=== PATIENT | female | born 1960 | race Caucasian/White ===

== ENCOUNTER 2019-02-25 08:35 | Day surgery (SDC) | payer BC ==
[~2019-02-25 08:35] MED LIST: Bupivacaine 0.25% 10 ML SDV ONE; Glycopyrrolate 0.2 MG/ML SDV ONE; Lidocaine 2% 5 ML SDV ONE; Methylene Blue 50 MG/10 ML Ampule ONE; Midazolam 1 MG/ML 2 ML SDV ONE; Neostigmine Methylsulfate 1 MG/ML 5 ML Syringe ONE; Ondansetron 4 MG/2 ML SDV ONE; Propofol 200 MG/20 ML SDV ONE; Sodium Chloride 0.9% 10 ML SDV IV PRN; Sodium Chloride 0.9% 10 ML Syringe FLUSH PRN; Sodium Chloride 0.9% 2.5 ML Syringe FLUSH PRN; ceFAZolin 1 GM in Premix Bag 1 BAG IV ONE; fentaNYL 250 MCG/5 ML SDV ONE
--- NOTE | 2019-02-25 09:09 | PCM.PREANE ---
Preanesthetic Assessment - Anesthesia/Transfusion/Family Hx Anesthesia History: Prior Anesthesia Without Reaction Family History of Anesthesia Reaction: No Transfusion History: No Prior Transfusion(s) Intubation History: Unknown - Review of Systems General: No Symptoms Pulmonary: No Symptoms Cardiovascular: No Symptoms Gastrointestinal: No Symptoms Neurological: No Symptoms Other: Reports: None - Physical Assessment Height: 5 ft 4.5 in Weight: 66.678 kg ASA Class: 2 Mental Status: Alert & Oriented x3 Airway Class: Mallampati = 2 Dentition: Reports: Normal Dentition, Bridge (left lower) Thyro-Mental Finger Breadths: 3 Mouth Opening Finger Breadths: 3 ROM/Head Extension: Full Lungs: Clear to Auscultation, Normal Respiratory Effort Cardiovascular: Regular Rate, Regular Rhythm - Allergies Allergies/Adverse Reactions: Allergies Allergy/AdvReac Type Severity Reaction Status Date / Time No Known Allergies Allergy Verified 02/19/19 10:21 - Acknowledgements Anesthesia Type Planned: General Anesthesia Pt an Appropriate Candidate for the Planned Anesthesia: Yes Alternatives and Risks of Anesthesia Discussed w Pt/Guardian: Yes Pt/Guardian Understands and Agrees with Anesthesia Plan: Yes PreAnesthesia Questionnaire HEENT History: Reports: Other (See Below) Other HEENT History: wears glasses Cardiovascular History: Reports: High Cholesterol Respiratory History: Reports: Asthma, Other (See Below) Other Respiratory History: "possible valley fever" to have CT scan done in [facility] before this procedure Gastrointestinal History: Reports: None Genitourinary History: Reports: None 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: , Other (See Below) (endometriosis, endometrial hyperplasia) Musculoskeletal History: Reports: Arthritis Neurological History: Reports: Migraines, Vertigo Psychiatric History: Reports: None Endocrine/Metabolic History: Reports: None Hematologic History: Reports: None Immunologic History: Reports: None Oncologic (Cancer) History: Reports: None Dermatologic History: Reports: None - Past Surgical History Head Surgeries/Procedures: Reports: None HEENT Surgical History: Reports: LASIK Cardiovascular Surgical History: Reports: None Respiratory Surgical History: Reports: None GI Surgical History: Reports: None Female Surgical History: Reports: Tubal Ligation, Other (See Below) Other Female Surgeries/Procedures: laparoscopy, hysteroscopy with EMB 07/09 Endocrine Surgical History: Reports: None Neurological Surgical History: Reports: None Musculoskeletal Surgical History: Reports: Shoulder Surgery Other Musculoskeletal Surgeries/Procedures:: left shoulder replacement 01/08 Oncologic Surgical History: Reports: None Dermatological Surgical History: Reports: None - SUBSTANCE USE Smoking Status *Q: Never Smoker Recreational Drug Use History: No - HOME MEDS Home Medications: Home Meds Benzonatate [Tessalon Perle] 100 mg PO ASDIRECTED PRN 02/19/19 [History] Fexofenadine/Pseudoephedrine [Sandra-D 12 Hour Tablet] 1 tab PO ASDIRECTED PRN 02/19/19 [History] Pulmicort Flexhaler 1 puff INH BID 02/19/19 [History] - CURRENT (IN HOUSE) MEDS Current Meds: Current Medications Sodium Chloride (Saline Flush) 10 ml FLUSH ASDIRECTED PRN PRN Reason: Keep Vein Open Sodium Chloride (Saline Flush) 2.5 ml FLUSH ASDIRECTED PRN PRN Reason: Keep Vein Open Sodium Chloride (Normal Saline) 10 ml IV ASDIRECTED PRN PRN Reason: IV Use Discontinued Medications Bupivacaine HCl (Sensorcaine-Mpf 0.25%) Confirm Administered Dose 20 ml .ROUTE .STK-MED ONE Stop: 02/25/19 07:25 Fentanyl (Sublimaze) Confirm Administered Dose 250 mcg .ROUTE .STK-MED ONE Stop: 02/25/19 07:59 Glycopyrrolate (Robinul) Confirm Administered Dose 0.4 mg .ROUTE .STK-MED ONE Stop: 02/25/19 07:58 Cefazolin Sodium/Dextrose 1 gm (/ Premix) 50 mls @ 100 mls/hr IV ONETIME ONE Stop: 02/25/19 05:29 Lidocaine (Xylocaine-Mpf 2%) Confirm Administered Dose 5 ml .ROUTE .STK-MED ONE Stop: 02/25/19 07:58 Methylene Blue (Provayblue) Confirm Administered Dose 50 mg .ROUTE .STK-MED ONE Stop: 02/25/19 07:24 Midazolam HCl (Versed 1 Mg/Ml) Confirm Administered Dose 2 mg .ROUTE .STK-MED ONE Stop: 02/25/19 07:59 Neostigmine Methylsulfate (Neostigmine) Confirm Administered Dose 5 mg .ROUTE .STK-MED ONE Stop: 02/25/19 07:58 Ondansetron HCl (Zofran) Confirm Administered Dose 4 mg .ROUTE .STK-MED ONE Stop: 02/25/19 07:58 Propofol (Diprivan 20 Ml) Confirm Administered Dose 200 mg .ROUTE .[facility] ONE Stop: 02/25/19 07:59
[2019-02-25] MEDS ORDERED: Scopolamine 1.5 MG Transdermal Patch TRDERM PRN (09:10)
[2019-02-25] MEDS ORDERED: Scopolamine 1.5 MG Transdermal Patch ONE (09:11)
[2019-02-25] MEDS ORDERED: Lactated Ringers 1,000 ML IV SCH (09:15)
[2019-02-25] MEDS ORDERED: Fluorescein 5 ML Vial ONE (09:16)
[2019-02-25 09:36] LABS: CARBON DIOXIDE,CO2 28.9 mmol/L (21.0-32.0); POTASSIUM,K 3.7 mmol/L (3.5-5.1)
[2019-02-25] MEDS ORDERED: ceFAZolin 1 GM Vial ONE (09:48)
[2019-02-25] MEDS ORDERED: Sodium Chloride 0.9% 20 ML ONE ×2 (09:48→10:24)
[2019-02-25] MEDS ORDERED: Dexamethasone 4 MG/ML 5 ML MDV ONE (09:58)
[2019-02-25] MEDS ORDERED: Phenylephrine/Normal Saline 100 MCG/ML 10 ML Syringe ONE (10:00)
[2019-02-25] MEDS ORDERED: ePHEDrine 50 MG/ML SDV ONE (10:24)
[2019-02-25] MEDS ORDERED: EPINEPHrine 1:10,000 1 MG/10 ML Syringe IVPUSH PRN (10:47)
[2019-02-25] MEDS ORDERED: Albuterol 0.083% 2.5 MG/3 ML Neb Soln NEB PRN (10:47)
[2019-02-25] MEDS ORDERED: fentaNYL 100 MCG/2 ML SDV IVPUSH PRN (10:47)
[2019-02-25] MEDS ORDERED: Atropine 0.1 MG/ML 10 ML Syringe IVPUSH PRN ×2 (10:47)
[2019-02-25] MEDS ORDERED: 50% Dextrose in Water 50 ML Syringe IVPUSH PRN (10:47)
[2019-02-25] MEDS ORDERED: Naloxone 0.4 MG/ML Syringe IVPUSH PRN (10:47)
[2019-02-25] MEDS ORDERED: Furosemide 40 MG/4 ML VIAL ONE (10:58)
[2019-02-25] MEDS ORDERED: Morphine 4 MG/ML Syringe IVPUSH PRN (11:42)
[2019-02-25] MEDS ORDERED: Ketorolac 30 MG/ML SDV IVPUSH PRN (11:42)
[2019-02-25] MEDS ORDERED: Ondansetron 4 MG/2 ML SDV IVPUSH PRN (11:42)
[2019-02-25] MEDS ORDERED: Promethazine 25 MG/ML SDV IM PRN (11:42)
[2019-02-25] MEDS ORDERED: Ketorolac 30 MG/ML SDV IVPUSH ONE (11:42)
[2019-02-25] MEDS ORDERED: Belladonna Alkaloids/Opium 16.2-30 MG Supp RECTAL PRN (11:42)
[2019-02-25] MEDS ORDERED: Acetaminophen/oxyCODONE 325-5 MG Tab PO PRN (11:42)
--- NOTE | 2019-02-25 11:57 | PCM.OPNOTE ---
- General Post-Op/Procedure Note Date of Surgery/Procedure: 02/25/19 Operative Procedure(s): LAVH/BSO/Cystoscopy Findings: 6-8 week size uterus, small ovaries, right paratubal cysts Pre Op Diagnosis: Endometrial hyperplasia. postmenopausal bleeding Post-Op Diagnosis: Same Anesthesia Technique: General ET Tube Primary Surgeon: Wendy Christian Fluid Replacement, Intraop: 2,100 EBL in mLs: 200 Complications: none known Condition: Stable Free Text/Narrative:: Dictation [id number]
--- NOTE | 2019-02-25 12:30 | PCM.POSTAN ---
POST ANESTHESIA ASSESSMENT - MENTAL STATUS Mental Status: Alert, Oriented - VITAL SIGNS Vital Signs: Last Vital Signs Temp 36.1 C 02/25/19 11:37 Pulse 73 02/25/19 12:22 Resp 16 02/25/19 12:22 BP 135/83 02/25/19 12:22 Pulse Ox 98 02/25/19 12:22 - RESPIRATORY Respiratory Status: Respiratory Rate WNL, Airway Patent, O2 Saturation Stable - CARDIOVASCULAR CV Status: Pulse Rate WNL, Blood Pressure Stable - GASTROINTESTINAL GI Status: No Symptoms - PAIN Pain Score: 4 - POST OP HYDRATION Hydration Status: Adequate & Stable - OBSERVATIONS Free Text/Narrative:: no anesthesia problems
--- NOTE | 2019-02-25 12:55 | OR ---
SURGEON: Wendy Christian M.D. DATE OF PROCEDURE: 02/25/2019 PREOPERATIVE DIAGNOSES: 1. Endometrial hyperplasia. 2. Postmenopausal bleeding. POSTOPERATIVE DIAGNOSES: 1. Endometrial hyperplasia. 2. Postmenopausal bleeding. PROCEDURES: Laparoscopic-assisted vaginal hysterectomy, bilateral salpingo-oophorectomy, cystoscopy. PRIMARY SURGEON: Wendy Christian MD. LPN MEDICAL ASSISTANT: 1. Abbie Higuera MD. 2. Donna Nielsen MS4. ANESTHESIA: General endotracheal anesthesia. FLUIDS: 2100 mL of crystalloid. ESTIMATED BLOOD LOSS: 200 mL. COMPLICATIONS: None known. FINDINGS: A 6- to 8-week sized uterus. Normal-appearing bilateral ovaries. Right paratubal cyst. Bilateral patent ureters. DISPOSITION: The patient to PACU in stable condition. PROCEDURE DETAILS: Elham is a 58-year-old postmenopausal female who has ongoing difficulties with bleeding and biopsy has confirmed endometrial hyperplasia. Despite treatment with progestin therapy, the patient is still having bleeding, therefore, would like to proceed with definitive intervention. Risks of procedure have been discussed. Proper consent obtained. The patient would like her tubes and ovaries removed at time of procedure. The patient taken to the operating room where she underwent general endotracheal anesthesia, placed in modified dorsal lithotomy position, was prepped and draped in the usual sterile fashion. SCDs to lower extremities. Busby to gravity. Received Ancef prophylactically. Time-out was performed. Vaginally, a speculum was introduced in the vagina. Anterior lip of the cervix was grasped with the Allis clamp. A uterine HUMI manipulator was gently introduced, balloon insufflated. All instruments other than the uterine manipulator were now removed from the vagina. Gloves changed. Attention turned abdominally. Infraumbilically, 0.25% bupivacaine was introduced. Please see nurse's notes for total amount of local dispensed during the procedure. A 5 mm infraumbilical incision was created, anterior abdominal wall was tented upward. A Veress needle was gently introduced. Saline hanging drop test was performed. Pneumoperitoneum was achieved. The Veress needle was removed. A 5 mm trocar was introduced along with the laparoscope. Peritoneal contents were identified. Right lower quadrant and left lower quadrant trocars now were introduced under direct visualization after prepping these regions with 0.25% bupivacaine and creating 5 mm skin incisions. The uterus was mobile. Tubes and ovaries were easily visualized. The ureters were seen peristalsing away from the region of the operative field. The left fallopian tube-ovary complex was now secured with a grasper, and using LigaSure, infundibulopelvic ligament was secured followed by the broad ligament down to level through the round ligament, to the upper portion of the cardinal ligament, base of the cardinal ligament, to the level of the uterosacral ligament. In the similar fashion, performed on the patient's right side. Uterovesical reflection was visualized. Bladder flap was created with LigaSure. Bladder was mobilized away from lower uterine segment followed by hydrodissection. At this juncture, I was able to remove laparoscopic instruments, release pneumoperitoneum, and proceed vaginally. The patient was placed in modified dorsal lithotomy position. The uterine manipulator was now gently removed. Weighted speculum and anterior Alexsander were now placed. Cervix grasped with Angélica clamp. Cervix was circumscribed with Bovie cautery anterior and posteriorly. The overlying mucosa was dissected away from underlying peritoneum. Posterior peritoneum was tented downward and entered sharply. The longer weighted speculum replaced the shorter. Anteriorly, the peritoneum was entered. [place] was placed to retract the bladder away from operative field. Froylan clamp was utilized on either side to secure uterosacral ligament. Transected and suture ligated with 2-0 Vicryl. Remainder of suture will be 2-0 Vicryl unless otherwise specified. Remaining pedicle on either side of the base of the cardinal ligament was able to be secured, transected, and suture ligated. The uterus, tubes, ovaries now removed, to be sent to pathology for analysis. There was some bleeding along this last pedicle along the left side, therefore, it was further secured with Froylan clamp and suture ligated. Hemostasis thereafter evident. The posterior peritoneum was now plicated to the edge of the vaginal cuff and the uterosacral ligament on either side was plicated to the vaginal apex. The pedicles were now inspected and found to be hemostatic. The cuff was closed using 0 Vicryl in continuous running locked fashion. Area of oozing in the midline cuff was now replicated with a [id number] suture. Hemostasis thereafter evident. The balloon was deflated, the Busby catheter removed. IV fluorescein and Lasix were delivered via IV and cystoscope was introduced in the bladder. The dome of the bladder was able to be visualized and found to be intact. Trigone inspected. The left ureteral orifice followed by the right ureteral orifice was now able to be visualized. Fluorescein-dyed urine was seen streaming from them, helping to ensure ureteral patency. The bladder was now drained. Busby catheter was replaced. The vaginal cuff once again inspected, found to be hemostatic. Attention was returned abdominally after changing gloves. Pneumoperitoneum was once again achieved. The pelvis was closely inspected along the pedicles and found to be hemostatic overall. The region was well irrigated, suction dried. Relief pressure was decreased to 5 mm of pressure. Once again, hemostasis was found to be evident. Therefore, the pneumoperitoneum was released. Laparoscopic instruments removed. The trocars removed under direct visualization followed by laparoscopic and infraumbilical trocar. The skin edges were reapproximated using 3-0 Monocryl in subcuticular fashion. Sponge, instrument, and needle count was correct x2. The patient has tolerated the procedure well overall. She will go to the PACU in stable condition, specimen to pathology. RACHEL / STARLA /[id number]
[2019-02-25] MEDS: Morphine 10 MG/ML Syringe IVPUSH PRN ×2 (14:17→19:39)
--- NOTE | 2019-02-25 17:40 | PCM.SN ---
- Free Text/Narrative Note: Pain is under better control now--just has back cramping. Denies nausea. Explained intraoperative findings and procedure. Continue postoperative cares, ambulate this pm and remove rodriguez later this pm.
[2019-02-25] MEDS: Acetaminophen/oxyCODONE 325-5 MG Tab PO PRN (22:52)
[2019-02-25] MEDS: Docusate Sodium 100 MG Cap PO SCH (22:52)
[2019-02-26] MEDS: Acetaminophen/oxyCODONE 325-5 MG Tab PO PRN ×2 (03:37→08:14)
[2019-02-26 06:59] LABS: POTASSIUM,K 4.5 mmol/L (3.5-5.1)
[2019-02-26] MEDS: Docusate Sodium 100 MG Cap PO SCH (08:15)
--- NOTE | 2019-02-26 08:30 | PCM.PN ---
<Karma Nielsen E - Last Filed: 02/26/19 08:24> - General Info Date of Service: 02/26/19 Admission Dx/Problem (Free Text): post-op day 1 s/p LAVH and BSO Subjective Update: Elham states she doing better this AM. She was in quite a bit of pain right after the surgery yesterday, but has a 4/10 with Percocet on board this AM. She was able to get some rest, but is excited to go home today. Functional Status: Reports: Pain Controlled, Tolerating Diet, Ambulating (only ambulated once yesterday), Urinating. Denies: New Symptoms, Incentive Spirometry (pt states she will use today, but did not yesterday) Pain Score: 4 - Review of Systems General: Denies: Fever, Weakness, Fatigue, Chills HEENT: Reports: Headaches Pulmonary: Denies: Shortness of Breath Cardiovascular: Denies: Chest Pain, Palpitations Gastrointestinal: Reports: Abdominal Pain (appropriate post-laparascopic srugery ). Denies: Flatus Genitourinary: Denies: Dysuria Musculoskeletal: Reports: No Symptoms Neurological: Reports: Headache. Denies: Confusion, Dizziness, Numbness, Tingling Psychiatric: Reports: No Symptoms - Patient Data Vitals - Most Recent: Last Vital Signs Temp 36.4 C 02/26/19 08:10 Pulse 72 02/26/19 08:10 Resp 18 02/26/19 08:10 BP 132/59 L 02/26/19 08:10 Pulse Ox 95 02/26/19 08:10 Weight - Most Recent: 66.678 kg I&O - Last 24 Hours: Intake & Output 02/25/19 02/26/19 02/26/19 22:59 06:59 14:59 Output Total 1150 600 Balance -1150 -600 Lab Results Last 24 Hours: Laboratory Results - last 24 hr 02/25/19 02/25/19 02/25/19 Range/Units 09:05 09:05 09:05 WBC 7.02 (4.0-11.0) K/uL RBC 4.85 (4.30-5.90) M/uL Hgb 14.7 (12.0-16.0) g/dL Hct 43.5 (36.0-46.0) % MCV 89.7 (80.0-98.0) fL MCH 30.3 (27.0-32.0) pg MCHC 33.8 (31.0-37.0) g/dL RDW Std Deviation 41.2 (28.0-62.0) fl RDW Coeff of Riley 13 (11.0-15.0) % Plt Count 329 (150-400) K/uL MPV 9.40 (7.40-12.00) fL Neut % (Auto) (48.0-80.0) % Lymph % (Auto) (16.0-40.0) % Crowley % (Auto) (0.0-15.0) % Eos % (Auto) (0.0-7.0) % Baso % (Auto) (0.0-1.5) % Neut # (Auto) (1.4-5.7) K/uL Lymph # (Auto) (0.6-2.4) K/uL Crowley # (Auto) (0.0-0.8) K/uL Eos # (Auto) (0.0-0.7) K/uL Baso # (Auto) (0.0-0.1) K/uL Nucleated RBC % 0.0 /100WBC Nucleated RBCs # 0 K/uL Sodium 142 (136-145) mmol/L Potassium 3.7 (3.5-5.1) mmol/L Chloride 105 (98-107) mmol/L Carbon Dioxide 28.9 (21.0-32.0) mmol/L BUN 14 (7.0-18.0) mg/dL Creatinine 1.0 (0.6-1.0) mg/dL Est Cr Clr Drug Dosing 53.41 mL/min Estimated GFR (MDRD) 56.7 ml/min Glucose 97 (74-106) mg/dL Calcium 8.5 (8.5-10.1) mg/dL HCG, Qual NEGATIVE (NEG) Blood Type Antibody Screen 02/25/19 02/26/19 02/26/19 Range/Units 09:05 05:48 05:48 WBC 8.56 (4.0-11.0) K/uL RBC 3.98 L (4.30-5.90) M/uL Hgb 12.0 (12.0-16.0) g/dL Hct 36.1 (36.0-46.0) % MCV 90.7 (80.0-98.0) fL MCH 30.2 (27.0-32.0) pg MCHC 33.2 (31.0-37.0) g/dL RDW Std Deviation 41.7 (28.0-62.0) fl RDW Coeff of Riley 13 (11.0-15.0) % Plt Count 292 (150-400) K/uL MPV 9.60 (7.40-12.00) fL Neut % (Auto) 61.0 (48.0-80.0) % Lymph % (Auto) 26.9 (16.0-40.0) % Crowley % (Auto) 10.4 (0.0-15.0) % Eos % (Auto) 1.5 (0.0-7.0) % Baso % (Auto) 0.2 (0.0-1.5) % Neut # (Auto) 5.2 (1.4-5.7) K/uL Lymph # (Auto) 2.3 (0.6-2.4) K/uL Crowley # (Auto) 0.9 H (0.0-0.8) K/uL Eos # (Auto) 0.1 (0.0-0.7) K/uL Baso # (Auto) 0.0 (0.0-0.1) K/uL Nucleated RBC % 0.0 /100WBC Nucleated RBCs # 0 K/uL Sodium 138 (136-145) mmol/L Potassium 4.5 (3.5-5.1) mmol/L Chloride 104 (98-107) mmol/L Carbon Dioxide 27.0 (21.0-32.0) mmol/L BUN 9 (7.0-18.0) mg/dL Creatinine 1.0 (0.6-1.0) mg/dL Est Cr Clr Drug Dosing 53.41 mL/min Estimated GFR (MDRD) 56.7 ml/min Glucose 99 (74-106) mg/dL Calcium 8.1 L (8.5-10.1) mg/dL HCG, Qual (NEG) Blood Type O POSITIVE Antibody Screen NEGATIVE Med Orders - Current: Current Medications Albuterol (Proventil Neb Soln) 2.5 mg NEB ONETIME PRN PRN Reason: Wheezing Atropine Sulfate (Atropine 0.1 Mg/Ml) 0.5 mg IVPUSH ASDIRECTED PRN PRN Reason: Hypo-perfusion Atropine Sulfate (Atropine 0.1 Mg/Ml) 1 mg IVPUSH ASDIRECTED PRN PRN Reason: Hypo-Perfusion Belladonna Alkaloids/Opium (B & O Supprettes No. 15a) 1 supp RECTAL Q4H PRN PRN Reason: Pain Last Admin: 02/25/19 12:09 Dose: 1 supp Dextrose/Water (Dextrose 50% In Water) 50 ml IVPUSH ASDIRECTED PRN PRN Reason: Hypoglycemia Docusate Sodium (Colace) 100 mg PO BID [facility] Last Admin: 02/26/19 08:15 Dose: 100 mg Epinephrine HCl (Epinephrine 1:10,000) 1 mg IVPUSH ASDIRECTED PRN PRN Reason: ACLS Guidelines Fentanyl (Sublimaze) 50 - 100 mcg IVPUSH Q5M PRN PRN Reason: Pain Last Admin: 02/25/19 12:11 Dose: 50 mcg Lactated Ringer's (Ringers, Lactated) 1,000 mls @ 100 mls/hr IV ASDIRECTED [facility] Last Admin: 02/25/19 09:00 Dose: 100 mls/hr Ketorolac Tromethamine (Toradol) 30 mg IVPUSH Q6H PRN PRN Reason: Pain (severe 7-10) Stop: 03/02/19 11:42 Last Admin: 02/25/19 12:50 Dose: 30 mg Morphine Sulfate (Morphine) 4 mg IVPUSH Q2H PRN PRN Reason: Pain (severe 7-10) Last Admin: 02/25/19 19:39 Dose: 4 mg Naloxone HCl (Narcan) 0.1 mg IVPUSH ASDIRECTED PRN PRN Reason: Respiratory Depression Ondansetron HCl (Zofran) 4 mg IVPUSH Q6H PRN PRN Reason: Nausea/Vomiting Oxycodone/Acetaminophen (Percocet 325-5 Mg) 1 tab PO Q4H PRN PRN Reason: Pain (moderate 4-6) Last Admin: 02/26/19 08:14 Dose: 1 tab Oxycodone/Acetaminophen (Percocet 325-5 Mg) 2 tab PO Q4H PRN PRN Reason: Pain (moderate 4-6) Promethazine HCl (Phenergan) 25 mg IM Q6H PRN PRN Reason: Nausea/Vomiting Scopolamine (Transderm-Scop) 1.5 mg TRDERM Q72H PRN PRN Reason: Nausea Last Admin: 02/25/19 09:15 Dose: 1.5 mg Sodium Chloride (Saline Flush) 10 ml FLUSH ASDIRECTED PRN PRN Reason: Keep Vein Open Sodium Chloride (Saline Flush) 2.5 ml FLUSH ASDIRECTED PRN PRN Reason: Keep Vein Open Sodium Chloride (Normal Saline) 10 ml IV ASDIRECTED PRN PRN Reason: IV Use Discontinued Medications Bupivacaine HCl (Sensorcaine-Mpf 0.25%) Confirm Administered Dose 20 ml .ROUTE .STK-MED ONE Stop: 02/25/19 07:25 Cefazolin Sodium (Ancef) Confirm Administered Dose 1 gm .ROUTE .STK-MED ONE Stop: 02/25/19 09:49 Dexamethasone (Dexamethasone) Confirm Administered Dose 20 mg .ROUTE .STK-MED ONE Stop: 02/25/19 09:59 Ephedrine Sulfate (Ephedrine Sulfate) Confirm Administered Dose 50 mg .ROUTE .STK-MED ONE Stop: 02/25/19 10:25 Fentanyl (Sublimaze) Confirm Administered Dose 250 mcg .ROUTE .STK-MED ONE Stop: 02/25/19 07:59 Fluorescein Sodium (Ak-Fluor) Confirm Administered Dose 5 ml .ROUTE .STK-MED ONE Stop: 02/25/19 09:17 Furosemide (Lasix) Confirm Administered Dose 40 mg .ROUTE .STK-MED ONE Stop: 02/25/19 10:59 Glycopyrrolate (Robinul) Confirm Administered Dose 0.4 mg .ROUTE .STK-MED ONE Stop: 02/25/19 07:58 Cefazolin Sodium/Dextrose 1 gm (/ Premix) 50 mls @ 100 mls/hr IV ONETIME ONE Stop: 02/25/19 05:29 Last Admin: 02/26/19 01:55 Dose: Not Given Sodium Chloride (Normal Saline) Confirm Administered Dose 20 mls @ as directed .ROUTE .STK-MED ONE Stop: 02/25/19 09:49 Sodium Chloride (Normal Saline) Confirm Administered Dose 20 mls @ as directed .ROUTE .STK-MED ONE Stop: 02/25/19 10:25 Ketorolac Tromethamine (Toradol) 30 mg IVPUSH ONETIME ONE Stop: 02/25/19 11:43 Lidocaine (Xylocaine-Mpf 2%) Confirm Administered Dose 5 ml .ROUTE .STK-MED ONE Stop: 02/25/19 07:58 Methylene Blue (Provayblue) Confirm Administered Dose 50 mg .ROUTE .STK-MED ONE Stop: 02/25/19 07:24 Midazolam HCl (Versed 1 Mg/Ml) Confirm Administered Dose 2 mg .ROUTE .STK-MED ONE Stop: 02/25/19 07:59 Morphine Sulfate (Morphine) 4 mg IVPUSH Q2H PRN PRN Reason: Pain (severe 7-10) Neostigmine Methylsulfate (Neostigmine) Confirm Administered Dose 5 mg .ROUTE .STK-MED ONE Stop: 02/25/19 07:58 Ondansetron HCl (Zofran) Confirm Administered Dose 4 mg .ROUTE .STK-MED ONE Stop: 02/25/19 07:58 Phenylephrine HCl (Phenylephrine In Ns 100 Mcg/Ml) Confirm Administered Dose 1 mg .ROUTE .STK-MED ONE Stop: 02/25/19 10:01 Propofol (Diprivan 20 Ml) Confirm Administered Dose 200 mg .ROUTE .STK-MED ONE Stop: 02/25/19 07:59 Scopolamine (Transderm-Scop) Confirm Administered Dose 1.5 mg .ROUTE .STK-MED ONE Stop: 02/25/19 09:12 Last Admin: 02/25/19 09:14 Dose: 1.5 mg - Exam General: Alert, Oriented HEENT: Pupils Equal, Pupils Reactive, EOMI, Mucous Membr. Moist/[place] Lungs: Clear to Auscultation, Normal Respiratory Effort Cardiovascular: Regular Rate, Regular Rhythm GI/Abdominal Exam: Normal Bowel Sounds, Soft, Tender (to palpation around port- sites, but otherwise non-tender). No: Rigid Extremities: Normal Inspection, Normal Range of Motion, No Pedal Edema Skin: Warm, Dry, Intact Wound/Incisions: Healing Well, Drainage (from the umbilicial port site) Neurological: No New Focal Deficit Psy/Mental Status: Alert, Normal Affect, Normal Mood - Problem List & Annotations (1) S/P hysterectomy with oophorectomy SNOMED Code(s): 552891485 Code(s): Z90.710 - ACQUIRED ABSENCE OF BOTH CERVIX AND UTERUS; Z90.721 - ACQUIRED ABSENCE OF OVARIES, UNILATERAL Status: Acute Current Visit: Yes Onset Date: ~02/25/19 - Problem List Review Problem List Initiated/Reviewed/Updated: Yes - Assessment Assessment:: Elham Victoria is a 58 yo female PO day 1 s/p LAVH with BSO. Surgery was uncomplicated, and pt is doing well this AM. She is able to void, eat and drink without nausea or vomiting, and she is appropriately hemodynamically stable. No signs of infection. - Plan Plan:: Discharge today. Pt will be sent home with Percocet for pain control. Tylenol and ibuprofen are also appropriate for pain management if not taking the Percocet. Continue to hydrate and ambulated as much as possible. Return to care if spike a fever over 101F, have vaginal bleeding, or rigid, tender abdomen with pain. F/U with Dr. Christian in clinic in 2 wks. <Wendy Christian - Last Filed: 02/26/19 08:50> - Patient Data Vitals - Most Recent: Last Vital Signs Temp 36.4 C 02/26/19 08:10 Pulse 72 02/26/19 08:10 Resp 18 02/26/19 08:10 BP 132/59 L 02/26/19 08:10 Pulse Ox 95 02/26/19 08:10 I&O - Last 24 Hours: Intake & Output 02/25/19 02/26/19 02/26/19 22:59 06:59 14:59 Output Total 1150 600 Balance -1150 -600 Lab Results Last 24 Hours: Laboratory Results - last 24 hr 02/25/19 02/25/19 02/25/19 Range/Units 09:05 09:05 09:05 WBC 7.02 (4.0-11.0) K/uL RBC 4.85 (4.30-5.90) M/uL Hgb 14.7 (12.0-16.0) g/dL Hct 43.5 (36.0-46.0) % MCV 89.7 (80.0-98.0) fL MCH 30.3 (27.0-32.0) pg MCHC 33.8 (31.0-37.0) g/dL RDW Std Deviation 41.2 (28.0-62.0) fl RDW Coeff of Riley 13 (11.0-15.0) % Plt Count 329 (150-400) K/uL MPV 9.40 (7.40-12.00) fL Neut % (Auto) (48.0-80.0) % Lymph % (Auto) (16.0-40.0) % Crowley % (Auto) (0.0-15.0) % Eos % (Auto) (0.0-7.0) % Baso % (Auto) (0.0-1.5) % Neut # (Auto) (1.4-5.7) K/uL Lymph # (Auto) (0.6-2.4) K/uL Crowley # (Auto) (0.0-0.8) K/uL Eos # (Auto) (0.0-0.7) K/uL Baso # (Auto) (0.0-0.1) K/uL Nucleated RBC % 0.0 /100WBC Nucleated RBCs # 0 K/uL Sodium 142 (136-145) mmol/L Potassium 3.7 (3.5-5.1) mmol/L Chloride 105 (98-107) mmol/L Carbon Dioxide 28.9 (21.0-32.0) mmol/L BUN 14 (7.0-18.0) mg/dL Creatinine 1.0 (0.6-1.0) mg/dL Est Cr Clr Drug Dosing 53.41 mL/min Estimated GFR (MDRD) 56.7 ml/min Glucose 97 (74-106) mg/dL Calcium 8.5 (8.5-10.1) mg/dL HCG, Qual NEGATIVE (NEG) Blood Type Antibody Screen 02/25/19 02/26/19 02/26/19 Range/Units 09:05 05:48 05:48 WBC 8.56 (4.0-11.0) K/uL RBC 3.98 L (4.30-5.90) M/uL Hgb 12.0 (12.0-16.0) g/dL Hct 36.1 (36.0-46.0) % MCV 90.7 (80.0-98.0) fL MCH 30.2 (27.0-32.0) pg MCHC 33.2 (31.0-37.0) g/dL RDW Std Deviation 41.7 (28.0-62.0) fl RDW Coeff of Riley 13 (11.0-15.0) % Plt Count 292 (150-400) K/uL MPV 9.60 (7.40-12.00) fL Neut % (Auto) 61.0 (48.0-80.0) % Lymph % (Auto) 26.9 (16.0-40.0) % Crowley % (Auto) 10.4 (0.0-15.0) % Eos % (Auto) 1.5 (0.0-7.0) % Baso % (Auto) 0.2 (0.0-1.5) % Neut # (Auto) 5.2 (1.4-5.7) K/uL Lymph # (Auto) 2.3 (0.6-2.4) K/uL Crowley # (Auto) 0.9 H (0.0-0.8) K/uL Eos # (Auto) 0.1 (0.0-0.7) K/uL Baso # (Auto) 0.0 (0.0-0.1) K/uL Nucleated RBC % 0.0 /100WBC Nucleated RBCs # 0 K/uL Sodium 138 (136-145) mmol/L Potassium 4.5 (3.5-5.1) mmol/L Chloride 104 (98-107) mmol/L Carbon Dioxide 27.0 (21.0-32.0) mmol/L BUN 9 (7.0-18.0) mg/dL Creatinine 1.0 (0.6-1.0) mg/dL Est Cr Clr Drug Dosing 53.41 mL/min Estimated GFR (MDRD) 56.7 ml/min Glucose 99 (74-106) mg/dL Calcium 8.1 L (8.5-10.1) mg/dL HCG, Qual (NEG) Blood Type O POSITIVE Antibody Screen NEGATIVE Med Orders - Current: Current Medications Albuterol (Proventil Neb Soln) 2.5 mg NEB ONETIME PRN PRN Reason: Wheezing Atropine Sulfate (Atropine 0.1 Mg/Ml) 0.5 mg IVPUSH ASDIRECTED PRN PRN Reason: Hypo-perfusion Atropine Sulfate (Atropine 0.1 Mg/Ml) 1 mg IVPUSH ASDIRECTED PRN PRN Reason: Hypo-Perfusion Belladonna Alkaloids/Opium (B & O Supprettes No. 15a) 1 supp RECTAL Q4H PRN PRN Reason: Pain Last Admin: 02/25/19 12:09 Dose: 1 supp Dextrose/Water (Dextrose 50% In Water) 50 ml IVPUSH ASDIRECTED PRN PRN Reason: Hypoglycemia Docusate Sodium (Colace) 100 mg PO BID [facility] Last Admin: 02/26/19 08:15 Dose: 100 mg Epinephrine HCl (Epinephrine 1:10,000) 1 mg IVPUSH ASDIRECTED PRN PRN Reason: ACLS Guidelines Fentanyl (Sublimaze) 50 - 100 mcg IVPUSH Q5M PRN PRN Reason: Pain Last Admin: 02/25/19 12:11 Dose: 50 mcg Lactated Ringer's (Ringers, Lactated) 1,000 mls @ 100 mls/hr IV ASDIRECTED [facility] Last Admin: 02/25/19 09:00 Dose: 100 mls/hr Ketorolac Tromethamine (Toradol) 30 mg IVPUSH Q6H PRN PRN Reason: Pain (severe 7-10) Stop: 03/02/19 11:42 Last Admin: 02/25/19 12:50 Dose: 30 mg Morphine Sulfate (Morphine) 4 mg IVPUSH Q2H PRN PRN Reason: Pain (severe 7-10) Last Admin: 02/25/19 19:39 Dose: 4 mg Naloxone HCl (Narcan) 0.1 mg IVPUSH ASDIRECTED PRN PRN Reason: Respiratory Depression Ondansetron HCl (Zofran) 4 mg IVPUSH Q6H PRN PRN Reason: Nausea/Vomiting Oxycodone/Acetaminophen (Percocet 325-5 Mg) 1 tab PO Q4H PRN PRN Reason: Pain (moderate 4-6) Last Admin: 02/26/19 08:14 Dose: 1 tab Oxycodone/Acetaminophen (Percocet 325-5 Mg) 2 tab PO Q4H PRN PRN Reason: Pain (moderate 4-6) Promethazine HCl (Phenergan) 25 mg IM Q6H PRN PRN Reason: Nausea/Vomiting Scopolamine (Transderm-Scop) 1.5 mg TRDERM Q72H PRN PRN Reason: Nausea Last Admin: 02/25/19 09:15 Dose: 1.5 mg Sodium Chloride (Saline Flush) 10 ml FLUSH ASDIRECTED PRN PRN Reason: Keep Vein Open Sodium Chloride (Saline Flush) 2.5 ml FLUSH ASDIRECTED PRN PRN Reason: Keep Vein Open Sodium Chloride (Normal Saline) 10 ml IV ASDIRECTED PRN PRN Reason: IV Use Discontinued Medications Bupivacaine HCl (Sensorcaine-Mpf 0.25%) Confirm Administered Dose 20 ml .ROUTE .STK-MED ONE Stop: 02/25/19 07:25 Cefazolin Sodium (Ancef) Confirm Administered Dose 1 gm .ROUTE .STK-MED ONE Stop: 02/25/19 09:49 Dexamethasone (Dexamethasone) Confirm Administered Dose 20 mg .ROUTE .STK-MED ONE Stop: 02/25/19 09:59 Ephedrine Sulfate (Ephedrine Sulfate) Confirm Administered Dose 50 mg .ROUTE .STK-MED ONE Stop: 02/25/19 10:25 Fentanyl (Sublimaze) Confirm Administered Dose 250 mcg .ROUTE .STK-MED ONE Stop: 02/25/19 07:59 Fluorescein Sodium (Ak-Fluor) Confirm Administered Dose 5 ml .ROUTE .STK-MED ONE Stop: 02/25/19 09:17 Furosemide (Lasix) Confirm Administered Dose 40 mg .ROUTE .STK-MED ONE Stop: 02/25/19 10:59 Glycopyrrolate (Robinul) Confirm Administered Dose 0.4 mg .ROUTE .STK-MED ONE Stop: 02/25/19 07:58 Cefazolin Sodium/Dextrose 1 gm (/ Premix) 50 mls @ 100 mls/hr IV ONETIME ONE Stop: 02/25/19 05:29 Last Admin: 02/26/19 01:55 Dose: Not Given Sodium Chloride (Normal Saline) Confirm Administered Dose 20 mls @ as directed .ROUTE .STK-MED ONE Stop: 02/25/19 09:49 Sodium Chloride (Normal Saline) Confirm Administered Dose 20 mls @ as directed .ROUTE .STK-MED ONE Stop: 02/25/19 10:25 Ketorolac Tromethamine (Toradol) 30 mg IVPUSH ONETIME ONE Stop: 02/25/19 11:43 Lidocaine (Xylocaine-Mpf 2%) Confirm Administered Dose 5 ml .ROUTE .STK-MED ONE Stop: 02/25/19 07:58 Methylene Blue (Provayblue) Confirm Administered Dose 50 mg .ROUTE .STK-MED ONE Stop: 02/25/19 07:24 Midazolam HCl (Versed 1 Mg/Ml) Confirm Administered Dose 2 mg .ROUTE .STK-MED ONE Stop: 02/25/19 07:59 Morphine Sulfate (Morphine) 4 mg IVPUSH Q2H PRN PRN Reason: Pain (severe 7-10) Neostigmine Methylsulfate (Neostigmine) Confirm Administered Dose 5 mg .ROUTE .STK-MED ONE Stop: 02/25/19 07:58 Ondansetron HCl (Zofran) Confirm Administered Dose 4 mg .ROUTE .STK-MED ONE Stop: 02/25/19 07:58 Phenylephrine HCl (Phenylephrine In Ns 100 Mcg/Ml) Confirm Administered Dose 1 mg .ROUTE .STK-MED ONE Stop: 02/25/19 10:01 Propofol (Diprivan 20 Ml) Confirm Administered Dose 200 mg .ROUTE .STK-MED ONE Stop: 02/25/19 07:59 Scopolamine (Transderm-Scop) Confirm Administered Dose 1.5 mg .ROUTE .STK-MED ONE Stop: 02/25/19 09:12 Last Admin: 02/25/19 09:14 Dose: 1.5 mg - My Orders Last 24 Hours: My Active Orders 02/25/19 11:42 Patient Status [ADT] Routine Notify Provider Intake and Out [RC] ASDIRECTED Notify Provider Vital Signs [RC] ASDIRECTED RT Incentive Spirometry [RC] Q2HWA Up ad Susie [RC] PER UNIT ROUTINE Acetaminophen/oxyCODONE [Percocet 325-5 MG] 1 tab PO Q4H PRN Acetaminophen/oxyCODONE [Percocet 325-5 MG] 2 tab PO Q4H PRN Belladonna/Opium [B & O Supprettes No. 15A] 1 supp RECTAL Q4H PRN Ketorolac [Toradol] 30 mg IVPUSH Q6H PRN Ondansetron [Zofran] 4 mg IVPUSH Q6H PRN Promethazine [Phenergan] 25 mg IM Q6H PRN Peripheral IV Discontinue [OM.PC] Routine Sequential Compression Device [OM.PC] Per Unit Routine Resuscitation Status Routine 02/25/19 11:43 Perineal Care [OM.PC] Per Unit Routine 02/25/19 14:13 Morphine 4 mg IVPUSH Q2H PRN 02/25/19 21:00 Docusate Sodium [Colace] 100 mg PO BID 02/25/19 Dinner Regular Diet [DIET] - Plan Plan:: patient seen and examined--agree with above, she is ambulating, voiding and tolerating regular diet. Labs are reassuring. Discharge instructions reviewed. Discharge today.
--- NOTE | 2019-02-26 08:45 | PCM48HPAN ---
Post Anesthesia Note - EVALUATION WITHIN 48HRS OF ANESTHETIC Vital Signs in Normal Range: Yes Patient Participated in Evaluation: Yes Respiratory Function Stable: Yes Airway Patent: Yes Cardiovascular Function Stable: Yes Hydration Status Stable: Yes Pain Control Satisfactory: Yes Nausea and Vomiting Control Satisfactory: Yes Mental Status Recovered: Yes Vital Signs: Last Vital Signs Temp 36.4 C 02/26/19 08:10 Pulse 72 02/26/19 08:10 Resp 18 02/26/19 08:10 BP 132/59 L 02/26/19 08:10 Pulse Ox 95 02/26/19 08:10
== END 2019-02-26 10:15 | disposition home or self-care (01) ==
LOC: MW.SDS 08:35 → MW.OB 11:42 → MW.SDS 02-26 10:15
PROVIDERS: ATTEND Obstetrics & Gynecology
DX: N80.0 Endometriosis of uterus (principal); N88.8 Other specified noninflammatory disorders of cervix uteri; N83.8 Other noninflammatory disorders of ovary, fallopian tube and broad ligament; M19.90 Unspecified osteoarthritis, unspecified site; Z79.899 Other long term (current) drug therapy
CPT/HCPCS: 36415; 58552; 80048; 84703; 85025; 85027; 86850; 86900; 86901; A9270; J0690; J1100; J1885; J1940; J2001; J2250; J2270; J2370; J2405; J2704; J3010; J3490; J7120